=== PATIENT | female | born 1965 | race Caucasian/White ===

== ENCOUNTER 2021-05-26 00:09 | Emergency (ER) | payer SELFPAY ==
[~2021-05-26] VITALS: Ht 160 cm; Wt 57.0 kg
[2021-05-26 00:13] VITALS: BP 140/79
[2021-05-26] MEDS ORDERED: ACETAMINOPHEN WITH CODEINE 300/30MG TABLET PO ONE (00:30)
[2021-05-26] MEDS ORDERED: BACITRACIN ZINC OINT UDPKT TOP ONE (02:00)
== END 2021-05-26 03:19 | disposition home or self-care (01) ==
LOC: ER 01:01
DX: S93.492A Sprain of other ligament of left ankle, initial encounter (principal); W10.8XXA Fall (on) (from) other stairs and steps, initial encounter; Y93.89 Activity, other specified; Y92.89 Other specified places as the place of occurrence of the external cause; Y99.8 Other external cause status
CPT/HCPCS: 73080; 73502; 73562; 73610; 99284; Z7610